=== PATIENT | female | born 1985 | race Caucasian/White ===

== ENCOUNTER 2017-11-10 18:54 | Emergency (ER) | payer OTHER ==
[~2017-11-10] VITALS: Ht 160 cm; Wt 58.0 kg
[2017-11-10 18:55] VITALS: BP 116/84; PULSE 110; RESP 18; TEMP 98.4; O2SAT 100
--- NOTE | 2017-11-10 19:06 | PD ---
HPI Chief Complaint: Laceration/Skin Injury Time Seen by Provider: 18:59 Travel History International Travel<30 days: No Contact w/Intl Traveler<30days: No Traveled to known affect area: No History of Present Illness HPI 32-year-old female presents to the emergency department for evaluation of a laceration to her left anterior knee that occurred just prior to arrival. Patient states she tripped and fell on an oyster shells which caused laceration. She states her tetanus immunization was approximately 2 years ago. She denies any pain at this time. She denies any other injury. She has no medical problems and takes no prescribed medications. She denies any chance of . Mild severity. PFSH Past Medical History ?: Not LMP: Depo Social History Alcohol Use: Yes Tobacco Use: No Substance Use: No Allergies-Medications (Allergen,Severity, Reaction): Coded Allergies: No Known Allergies (Unverified , 11/10/17) Reported Meds & Prescriptions Reported Meds & Active Scripts Active Ibuprofen 600 Mg Tab 600 Mg PO TID PRN Doxycycline Hyclate 100 Mg Cap 100 Mg PO BID Review of Systems Except as stated in HPI: all other systems reviewed are Neg Physical Exam Narrative GENERAL: Well-nourished, well-developed female patient, ambulatory. Afebrile. SKIN: Focused skin assessment warm/dry. Patient has a 3 cm laceration to the left anterior knee. No active bleeding. HEAD: Normocephalic. Atraumatic. EYES: No scleral icterus. No injection or drainage. NECK: Supple, trachea midline. No JVD or lymphadenopathy. CARDIOVASCULAR: Left pedal pulse 2+. RESPIRATORY: No accessory muscle use. MUSCULOSKELETAL: No cyanosis, or edema. Patient has full flexion-extension of the left knee. BACK: No obvious deformity. Data Data Last Documented VS Vital Signs Date Time Temp Pulse Resp B/P (MAP) Pulse Ox O2 Delivery O2 Flow Rate FiO2 11/10/17 18:55 98.4 110 18 116/84 (95) 100 Orders Orders Knee, Complete (4vws) (11/10/17 ) Lidocai-Epi 1%-1:100,000 Inj (Xylocaine- (11/10/17 19:15) Doxycycline (Vibramycin) (11/10/17 20:30) Ed Discharge Order (11/10/17 20:20) MDM Medical Decision Making Medical Screen Exam Complete: Yes Emergency Medical Condition: Yes Medical Record Reviewed: Yes Interpretation(s) Last Impressions Knee X-Ray 11/10/17 0000 Signed Impressions: CONCLUSION: No acute findings. Differential Diagnosis Laceration versus foreign body versus fracture Narrative Course 32-year-old female presents to the emergency department for evaluation of a laceration to her left anterior knee. Patient gives verbal consent for laceration repair. X-ray of the left knee is ordered and pending. X-ray of the left knee shows no acute findings. Laceration is repaired. Patient will be discharged with a prescription for doxycycline for prophylaxis. She is also given a prescription for ibuprofen for pain. She is instructed on proper wound care. She is return for any acute worsening of symptoms. The patient was discharged in stable condition with instructions, including return instructions and follow up instructions. Procedures Procedure Narrative LACERATION LOCATION: Left knee LENGTH: 3 cm NUMBER OF STITCHES/DOMENICA: 7 simple interrupted sutures REPAIR: The area of the laceration was prepped with Betadine and sterilely draped. The laceration was infiltrated with 1% lidocaine with epinephrine. The wound was copiously irrigated and explored without evidence of foreign body, tendon injury or neurovascular injury. The wound was closed using 3-0 Prolene. This was a single layer repair. A sterile dressing was applied. The patient was advised to keep the dressing clean and dry. Patient tolerated the procedure well. Diagnosis Primary Impression: Laceration of left knee Qualified Codes: S81.012A - Laceration without foreign body, left knee, initial encounter Referrals: Primary Care Physician call for appointment Patient Instructions: Care For Your Stitches (ED), General Instructions, Laceration (ED) Additional Instructions: Take antibiotic as directed until gone. Clean laceration twice daily with soap and water and apply [id number] antibiotic ointment. No swimming or hot tubs until healed. Keep clean and dry. Take ibuprofen as directed as needed with food for pain. Suture removal in 10-14 days. You may follow-up with your primary care physician or return to the emergency department for this. Return to the emergency department for any acute worsening of symptoms. Med/Other Pt SpecificInfo: Prescription(s) given Scripts Ibuprofen (Ibuprofen) 600 Mg Tab 600 MG PO TID Y for PAIN SCALE 1 TO 10, #21 TAB 0 Refills Prov: Steffi Nino 11/10/17 Doxycycline Hyclate (Doxycycline Hyclate) 100 Mg Cap 100 MG PO BID for Infection, #20 CAP 0 Refills Prov: Steffi Nino 11/10/17 Disposition: 01 DISCHARGE HOME Condition: Stable Steffi Nino Nov 10, 2017 19:06
[2017-11-10] MEDS ORDERED: LIDOCAINE 1%/EPINEPHrine 1:100,000 SOLN 20 ML VIAL INFIL ONE (19:15)
[2017-11-10] MEDS ORDERED: IBUP-232 PO (20:18)
[2017-11-10] MEDS ORDERED: DOXY100C PO (20:18)
--- NOTE | 2017-11-10 20:22 | RADRPT ---
EXAM DATE: 11/10/2017 7:51 PM EDT AGE/SEX: 32 years / Female INDICATIONS: Left knee pain and laceration after falling on oyster bed, possible foreign body. CLINICAL DATA: This is the patient's initial encounter. Patient reports that signs and symptoms have been present for 1 day and indicates a pain score of 2/10. MEDICAL/SURGICAL HISTORY: None. None. COMPARISON: No prior exams available for comparison. FINDINGS: Bony structures are intact and in normal alignment. Joints are intact without dislocation or signifi cant arthropathy. Osseous density is normal. Soft tissues are unremarkable. No radiopaque foreign bodies seen. CONCLUSION: No acute findings. Electronically signed by: Orlando Aguilar MD 11/10/2017 8:21 PM EDT
[2017-11-10] MEDS ORDERED: DOXYCYCLINE HYCLATE 100 MG CAP PO ONE (20:30)
== END 2017-11-10 20:25 | disposition home or self-care (01) ==
LOC: PHEFT 18:54
DX: S81.012A Laceration without foreign body, left knee, initial encounter (principal); W01.118A Fall on same level from slipping, tripping and stumbling with subsequent striking against other sharp object, initial encounter; Y93.89 Activity, other specified; Y92.89 Other specified places as the place of occurrence of the external cause
CPT/HCPCS: 12002; 73564